=== PATIENT | male | born 1985 | race Caucasian/White ===

== ENCOUNTER 2017-12-02 16:36 | Emergency (ER) | payer BC ==
[2015-05-21 10:00] VITALS: Ht 177.8 cm; Wt 88.5 kg
[~2017-12-02] VITALS: Ht 177.8 cm; Wt 88.5 kg
[~2017-12-02 16:36] MED LIST: ALPR-1 PO; AMO500 PO; ARIP15TA9 PO; ARIP30TA10 PO; BUPR-128 PO; BUPR300T55 PO; CHOL10005 PO; CHOL400C10 PO; DUL20 PO; DUL30 PO; DULO60CA51 PO; FISH OIL1 CAP PO; FLAX100042 PO; FLU20 PO; FLUO40CA76 PO; GAB300 PO; GEM600 PO; GEMF600T91 PO; HYDRO25 PO; KET10 PO; LAM25 PO; LEV25 PO; LEVO25TA56 PO; LEVO50TA80 PO; LIO25 PO; LIOT25TA PO; LITH300T18 PO; LITH600C6 PO; LOR5/325 PO; LOT15T TOP; MELA5TAB11 PO; MET500 PO; METF-1 PO; METF-409 PO; METF-420 PO; METH36TA11 PO; MINO100T8 PO; MINOCY50PT PO; MODA200T39 PO; MULT-1379 PO; MULT-806 PO; NICO-219 BC; NO ROUTINE MEDS; OMEG500C7 PO; OXC300 PO; OXCA300T44 PO; RAM8 PO; SULF-198 PO; TESTOSTERONE BOOSTER; TESTOSTERONE BOOSTER PO; TRAM-420 PO; TRAZ-133 PO; TRAZ-156 PO; TRAZ50 PO; VENL100T21 PO; VITAMINS; ZIPR20CA11 PO; [UNRECOGNIZED DRUG - OTHER]; [UNRECOGNIZED DRUG - OTHER] PO; [UNRECOGNIZED DRUG - OTHER] PO; hydroxycut PO
--- NOTE | 2017-12-02 16:39 | ER Report ---
History and Physical Time Seen By MD: 16:38 HPI/ROS CHIEF COMPLAINT: paranoid and thoughts of self harm HISTORY OF PRESENT ILLNESS: Pt arrived with family c/o of being increasingly more paranoid and having thoughts of hurting himself. when asked how he would hurt himself he replied "i have multiple plans just in case the first does not work out". Pt would not give me the details of any plan but states he came her instead of acting out a plan. Pt states he is paranoid that people are out to get him. Pt states in last day or so he has taken "action"; "I have armed my all of my guns". Pt gave a rattled off a list of the arsenal of weapons at his disposal. Pt will not go into detail on his psych history "i am embarressed" but did say he has been admitted here before. PT does not follow a psychiatrist as outpt. pt admits to using marijuania but no other drug use when asked. Pt denies homicidal thoughts. REVIEW OF SYSTEMS: Constitutional: No fever, no chills. Eyes: No discharge. ENT: No sore throat. Cardiovascular: No chest pain, no palpitations. Respiratory: No cough, no shortness of breath. Gastrointestinal: No abdominal pain, no vomiting. Genitourinary: No hematuria. Musculoskeletal: No back pain. Skin: No rashes. Neurological: No headache. Psych: anxious, paranoid and suicidal Allergies: Coded Allergies: No Known Drug Allergies (Verified , 12/02/17) Home Meds Reported Medications Multivits,Th W-Fe,Other Min (THERA-M) 1 Each Tablet, 1 EACH PO QDAY 12/10/15 [Mens Ripped Vitapak] No Conflict Check, PO DAILY 12/09/15 Hx Smoking: Yes Smoking Status: Former Smoker Exposure to Second Hand Smoke?: Yes Hx Substance Use Disorder: Yes (4 MONTHS CLEAN 09/21/17) Hx Alcohol Use: Yes Constitutional Vital Sign - Last 24 Hours 12/02/17 16:40 Temp 99.2 Pulse 84 Resp 20 B/P (MAP) 131/68 Pulse Ox 91 O2 Delivery Room Air Physical Exam General Appearance: The patient is alert, has no immediate need for airway protection and no signs of toxicity. Eyes: Pupils equal and round no pallor or injection, EOMI ENT: no pharyngeal erythema or exudates, Mucous membranes are moist Respiratory: There are no retractions, lungs are clear to auscultation. Cardiovascular: Regular rate and rhythm. pulses are equal and symmetrical Gastrointestinal: Abdomen is soft and non tender, no masses, bowel sounds normal, no guarding, no rigidity or rebound Neurological: Cranial nerves II-XII grossly intact, no sensory or motor loss Skin: Warm and dry, no rashes. Musculoskeletal: Neck is supple non tender, no vertebral tenderness Extremities are nontender, non swollen and have full range of motion. Psych: anxious appearing DIFFERENTIAL DIAGNOSIS: After history and physical exam differential diagnosis was considered for paranoia due to cannibis usage; schizoaffective d/o; depression Medical Decision Making Data Points Result Diagram: 12/02/174 12/02/171653 Laboratory Hematology Test 12/02/17 16:54 Red Blood Count 5.29 M/uL (4.00-5.60) Mean Corpuscular Volume 89.0 fL (80.0-96.0) Mean Corpuscular Hemoglobin 30.4 pg (26.0-33.0) Mean Corpuscular Hemoglobin Concent 34.1 g/dL (32.0-36.0) Red Cell Distribution Width 13.3 % (11.5-14.5) Mean Platelet Volume 8.6 fL (7.2-11.1) Neutrophils (%) (Auto) 66.5 % (39.4-72.5) Lymphocytes (%) (Auto) 24.8 % (17.6-49.6) Monocytes (%) (Auto) 6.6 % (4.1-12.4) Eosinophils (%) (Auto) 1.5 % (0.4-6.7) Basophils (%) (Auto) 0.6 % (0.3-1.4) Nucleated RBC Relative Count (auto) 0.1 /100WBC Neutrophils # (Auto) 6.9 K/uL (2.0-7.4) Lymphocytes # (Auto) 2.6 K/uL (1.3-3.6) Monocytes # (Auto) 0.7 K/uL (0.3-1.0) Eosinophils # (Auto) 0.2 K/uL (0.0-0.5) Basophils # (Auto) 0.1 K/uL (0.0-0.1) Nucleated RBC Absolute Count (auto) 0.01 K/uL Sodium Level 142 mmol/L (137-145) Potassium Level 4.2 mmol/L (3.5-5.0) Chloride Level 104 mmol/L (98-107) Carbon Dioxide Level 23 mmol/L (22-30) Blood Urea Nitrogen 19 mg/dl (9-21) Creatinine 1.10 mg/dl (0.66-1.25) Glomerular Filtration Rate Calc > 60.0 Random Glucose 84 mg/dl (75-110) Calcium Level 9.3 mg/dl (8.4-10.2) Magnesium Level 2.0 mg/dl (1.7-2.2) Total Bilirubin 0.4 mg/dl (0.2-1.3) Aspartate Amino Transf (AST/SGOT) 33 U/L (0-35) Alanine Aminotransferase (ALT/SGPT) 31 U/L (0-56) Alkaline Phosphatase 53 U/L (0-126) Total Protein 7.9 gm/dl (6.3-8.2) Albumin 4.5 g/dl (3.5-5.0) Salicylates Level < 10 mg/L Salicylate Last Dose Date unknown Acetaminophen Level < 10 ug/ml Serum Alcohol < 10 mg/dl Chemistry Test 12/02/17 16:54 White Blood Count 10.4 k/uL (4.5-11.0) Red Blood Count 5.29 M/uL (4.00-5.60) Hemoglobin 16.1 g/dL (14.0-18.0) Hematocrit 47.1 % (42.0-52.0) Mean Corpuscular Volume 89.0 fL (80.0-96.0) Mean Corpuscular Hemoglobin 30.4 pg (26.0-33.0) Mean Corpuscular Hemoglobin Concent 34.1 g/dL (32.0-36.0) Red Cell Distribution Width 13.3 % (11.5-14.5) Platelet Count 262 K/uL (150-450) Mean Platelet Volume 8.6 fL (7.2-11.1) Neutrophils (%) (Auto) 66.5 % (39.4-72.5) Lymphocytes (%) (Auto) 24.8 % (17.6-49.6) Monocytes (%) (Auto) 6.6 % (4.1-12.4) Eosinophils (%) (Auto) 1.5 % (0.4-6.7) Basophils (%) (Auto) 0.6 % (0.3-1.4) Nucleated RBC Relative Count (auto) 0.1 /100WBC Neutrophils # (Auto) 6.9 K/uL (2.0-7.4) Lymphocytes # (Auto) 2.6 K/uL (1.3-3.6) Monocytes # (Auto) 0.7 K/uL (0.3-1.0) Eosinophils # (Auto) 0.2 K/uL (0.0-0.5) Basophils # (Auto) 0.1 K/uL (0.0-0.1) Nucleated RBC Absolute Count (auto) 0.01 K/uL Glomerular Filtration Rate Calc > 60.0 Calcium Level 9.3 mg/dl (8.4-10.2) Magnesium Level 2.0 mg/dl (1.7-2.2) Total Bilirubin 0.4 mg/dl (0.2-1.3) Aspartate Amino Transf (AST/SGOT) 33 U/L (0-35) Alanine Aminotransferase (ALT/SGPT) 31 U/L (0-56) Alkaline Phosphatase 53 U/L (0-126) Total Protein 7.9 gm/dl (6.3-8.2) Albumin 4.5 g/dl (3.5-5.0) Salicylates Level < 10 mg/L Salicylate Last Dose Date unknown Acetaminophen Level < 10 ug/ml Serum Alcohol < 10 mg/dl Toxicology Test 12/02/17 16:54 Salicylates Level < 10 mg/L Salicylate Last Dose Date unknown Acetaminophen Level < 10 ug/ml Serum Alcohol < 10 mg/dl ED Course/Re-evaluation ED Course 12/02/2017 4:53:38 pm Behavioral health paged to come down and evaluate pt. Labs being drawn. 12/02/2017 5:17:[address] Du who accepts patient to the floor. Decision to Disposition Date: Dec 02, 2017 Decision to Disposition Time: 17:21 Depart Departure Latest Vital Signs Vital Signs Date Time Temp Pulse Resp B/P (MAP) Pulse Ox O2 Delivery O2 Flow Rate FiO2 12/02/17 16:40 99.2 84 20 131/68 91 Room Air Impression: Primary Impression: Paranoid behavior Additional Impression: Suicidal ideations Condition: Improved Disposition: XFER TO [facility] Problem Qualifiers AGAPITO GRAY DO Dec 02, 2017 16:39
[2017-12-02 16:40] VITALS: BP 131/68
[2017-12-02 17:04] LABS: PLATELET COUNT, AUTOMATED 262 K/uL (150-450)
== END 2017-12-02 17:50 ==
LOC: ER 16:42
DX: F22 Delusional disorders (principal); R45.851 Suicidal ideations
CPT/HCPCS: 80305; 80320; 80329; 81001; 82040; 82247; 82310; 82374; 82435; 82565; 82947; 83735; 84075; 84132; 84155; 84295; 84443; 84450; 84460; 84520; 85025; 99284

== ENCOUNTER 2017-12-02 17:17 | Inpatient (IN) | payer BC ==
[2015-05-21 10:00] VITALS: Ht 177.8 cm; Wt 88.5 kg
[~2017-12-02] VITALS: Ht 177.8 cm; Wt 88.5 kg
[2017-12-02] MEDS ORDERED: MAG HYD/AL HYD/SIMETH 30ML UDC PO PRN (18:10)
[2017-12-02] MEDS ORDERED: ACETAMINOPHEN 325 MG TAB PO PRN (18:10)
[2017-12-02 18:50] VITALS: BP 106/53
[2017-12-02] MEDS ORDERED: hydrOXYzine PAMOATE 25 MG CAP PO PRN (20:15)
[2017-12-02] MEDS: MELATONIN 3 MG TAB PO PRN (21:25)
[2017-12-03 06:04] VITALS: BP 122/61
[2017-12-03] MEDS: MULTIVITAMINS PO SCH (08:24)
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
[2017-12-03] MEDS: MELATONIN 3 MG TAB PO PRN (20:26)
[2017-12-04 06:32] VITALS: BP 124/60
[2017-12-04] MEDS: MULTIVITAMINS PO SCH (08:17)
[2017-12-04] MEDS ORDERED: MELA3TAB31 PO (10:25)
--- NOTE | 2017-12-04 17:33 | DISCHARGE SUMMARY ---
FINAL DIAGNOSES PER DSM-V Borderline personality disorder. Cannabis use disorder severe. Cannabis related disorder. Patient known to have supportive family. REASON FOR ADMISSION Please see H and P for full details. This is a cooperative, pleasant 32-year- old male who has a longstanding history of borderline personality disorder mixed with significant cannabis use. Patient was admitted briefly. Overall patient continues to improve throughout his life with much growth and maturity evident since admissions to this psychiatric unit from years before. Patient again admitted briefly with brief suicidal thoughts in a state of what the patient described as psychosis. Patient himself was open to educational information regarding the negative consequences of continued cannabis use. Patient verbalizing a commitment to abstain on an outpatient basis. Patient also agreeing to meet with outpatient therapist for continued treatment of borderline personality disorder. Patient met with family members. Firearms were removed from the home and patient stating all suicidal thoughts had resolved. Patient was discharged to home. PHYSICAL EXAMINATION GENERAL: Please see emergency room note. Notable for a 32-year-old male in no acute distress. VITAL SIGNS: At the time of admission, temperature 99.2, pulse 84, respiratory rate 20, blood pressure 131/68 and pulse oximetry 91 on room air. At the time of discharge from [facility] vital signs showed temperature of 98.6, pulse 77, respiratory rate 16, blood pressure 124/60 and pulse oximetry 98 on room air. LABORATORY DATA At the time of admission CBC was unremarkable. CMP unremarkable. TSH 0.82. Urinalysis unremarkable. Toxicology screen positive for cannabis, negative for other substances of abuse, and a nondetectable serum alcohol level. MENTAL STATUS EXAMINATION AT THE TIME OF DISCHARGE GENERAL APPEARANCE, BEHAVIOR AND ATTITUDE: This is a polite, cooperative 32- year-old male making [id number] eye contact at times, which is overall baseline for this patient. Patient interacting, however, well. No periods of tearfulness. No bizarre mannerisms or tics. No bizarre mannerisms or tics. SPEECH: Within normal limits, regular rate, rhythm volume and tone. MOOD: Described as improved. AFFECT: Full at times and mood congruent. THOUGHT PROCESSES: Logical and goal directed. No loose associations or flight of ideas. THOUGHT CONTENT: Free of auditory or visual hallucinations, ideas of reference , thought broadcastings, delusions, obsessions, compulsions. Negative for suicidal or homicidal ideation. SENSORIUM: Clear. COGNITION: Alert and oriented to person, place, time and situation. MEMORY: Immediate, recent and remote estimated intact. INTELLIGENCE: Average based on interview. INSIGHT AND JUDGMENT: Some maladaptive stress coping mechanisms ongoing, but considered overall intact in the absence of drug use and appropriate for outpatient monitoring. RESULTS OF TESTING IMAGING: None. LABORATORY DATA: See above. CONSULTATIONS: None. TREATMENT Patient received individual and group therapy, took an active role in his treatment. No medications were prescribed. HOSPITAL COURSE Patient quickly improved in the absence of cannabis and with supportive therapy on the unit. The patient's admissions continue to be further and further apart overall with patient demonstrating growth and maturity with each subsequent brief admission. Patient will certainly benefit from stopping cannabis use, which he agrees use, and certainly would benefit from DBT treatment on an outpatient basis, which patient agrees to. CONDITION OF PATIENT ON DISCHARGE Stable. Considered minimal risk to himself or others and appropriate for outpatient care. DISPOSITION Patient discharged to home. His parents were present at the time of discharge. Patient would followup with outpatient therapy, particularly DBT. Patient would stop cannabis and remain free of alcohol and other illicit substances. He was given the crisis line should symptoms return. Patient would remain on melatonin and multivitamin. Risks, benefits and alternatives of the above discharge plan were discussed. Informed consent was given to proceed with above discharge plan by this competent patient and patient's parents present at the time of discharge. ERNIE
== END 2017-12-04 11:05 | disposition home or self-care (01) | DRG 883 ==
LOC: BHS 17:17
PROVIDERS: ADMIT Psychiatry & Neurology Psychiatry; ATTEND Psychiatry & Neurology Psychiatry
DX: F60.3 Borderline personality disorder (principal); R45.851 Suicidal ideations; F12.29 Cannabis dependence with unspecified cannabis-induced disorder; E03.9 Hypothyroidism, unspecified; G47.33 Obstructive sleep apnea (adult) (pediatric); Z62.810 Personal history of physical and sexual abuse in childhood; Z81.8 Family history of other mental and behavioral disorders; Z91.5 Personal history of self-harm

== ENCOUNTER 2018-08-28 01:21 | Emergency (ER) | payer BC ==
[2015-05-21 10:00] VITALS: Wt 95.3 kg
[~2018-08-28 01:21] MED LIST changes: +MELA3TAB31 PO; -TRAZ-156 PO; +TRAZ50TA34 PO
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
[2018-08-28] MEDS ORDERED: DIPHTH/TETANUS/ACEL. PERTUSSIS IM ONLY ONE (01:40)
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
[2018-08-28 02:42] VITALS: BP 116/72
== END 2018-08-28 02:50 | disposition home or self-care (01) ==
LOC: ER 01:27
DX: S02.2XXA Fracture of nasal bones, initial encounter for closed fracture (principal); S00.83XA Contusion of other part of head, initial encounter; F10.920 Alcohol use, unspecified with intoxication, uncomplicated; Y04.2XXA Assault by strike against or bumped into by another person, initial encounter
CPT/HCPCS: 70450; 70486; 90471; 90715; 99284